=== PATIENT | male | born 1985 | race Caucasian/White ===

== ENCOUNTER 2017-08-13 14:31 | Emergency (ER) | payer SELFPAY ==
[~2017-08-13] VITALS: Ht 167.6 cm; Wt 72.4 kg
[~2017-08-13 14:31] MED LIST: BACTDS PO; CEPH-443 PO; HYDR-3498 PO; IBUP-1542 PO
[2017-08-13 14:40] VITALS: Ht 167.6 cm; Wt 72.4 kg
[2017-08-13] MEDS ORDERED: DOXY100T20 PO (15:49)
[2017-08-13] MEDS ORDERED: ACET500C5 PO (15:49)
--- NOTE | 2017-08-13 15:53 | ERD ---
ER Documentation Chief Complaint Chief Complaint Complains of rash to the face and ear x 3 days HPI This 32-year-old male complains of pain and redness in the left face. He has had a bump for over a year. He had a similar lesion on his left cheek feels that it is possible he was seen. Denies any fevers, vomiting, shortness breath or chest pain. ROS All systems reviewed and are negative except as per history of present illness. Medications Home Meds Active Scripts Acetaminophen* (Tylophen*) 500 Mg Capsule, 1 CAP PO Q6H Y for PAIN AND OR ELEVATED TEMP, #15 CAP Prov:KATIE EDWARDS MD 08/13/17 Doxycycline Hyclate* (Doxycycline Hyclate*) 100 Mg Tablet.dr, 100 MG PO BID for 10 Days, TAB Prov:KATIE EDWARDS MD 08/13/17 Hydrocodone Bit-Acetaminophen* ([place]*) 5-325 Mg Tab, 1 TAB PO Q6 Y for SEVERE PAIN LEVEL 7-10, #10 TAB Prov:RUSSELL BROWN NP 02/17/16 Ibuprofen* (Motrin*) 600 Mg Tab, 600 MG PO Q6H Y for PAIN AND OR ELEVATED TEMP, #30 TAB Prov:RUSSELL BROWN NP 02/17/16 Cephalexin* (Keflex*) 500 Mg Capsule, 500 MG PO QID for 10 Days, CAP Prov:RUSSELL BROWN NP 02/17/16 Sulfamethoxazole-Trimethoprim* (Bactrim* DS) 800-160 Mg Tab, 1 TAB PO BID for 10 Days, TAB Prov:RUSSELL BROWN NP 02/17/16 Reported Medications [none] Unknown Strength No Conflict Check 02/17/16 Allergies Allergies: Coded Allergies: No Known Allergy (Unverified , 02/17/16) PMhx/Soc Medical and Surgical Hx: pt denies Medical Hx, pt denies Surgical Hx History of Surgery: No Anesthesia Reaction: No Hx Neurological Disorder: No Hx Respiratory Disorders: No Hx Cardiac Disorders: No Hx Psychiatric Problems: No Hx Miscellaneous Medical Probl: No Hx Alcohol Use: No Hx Substance Use: No Hx Tobacco Use: No Smoking Status: Never smoker Physical Exam Vitals Vital Signs Date Time Temp Pulse Resp B/P Pulse Ox O2 Delivery O2 Flow Rate FiO2 08/13/17 14:40 98.8 66 20 127/72 99 Physical Exam Const: [] Letter, [id number]. Head: Atraumatic Eyes: Normal Conjunctiva ENT: Normal External Ears, Nose and Mouth. 1 cm subcutaneous tender lesion just anterior to the left ear. No significant streaking or obvious fluctuance. Neck: Full range of motion..~ No meningismus. Resp: Clear to auscultation bilaterally Cardio: Regular rate and rhythm, no murmurs Abd: Soft, non tender, non distended. Normal bowel sounds Skin: No petechiae or rashes Back: No midline or flank tenderness Ext: No cyanosis, or edema Neur: Awake and alert Psych: Normal Mood and Affect Results 24 hrs Current Medications Medications (Trade) Dose Ordered Sig/Doris Route PRN Reason Start Time Stop Time Status Last Admin Dose Admin Lidocaine (Xylocaine 1% (Mdv) 20 ml) 20 ml ONCE ONCE SC 08/13/17 16:00 08/13/17 16:01 Procedures/MDM Patient presents with a skin lesion which is worsening redness and pain which has a clinical appearance of likely a sebaceous cyst. There is no evidence of significant facial cellulitis, additional complications. General-the left face was prepped with Betadine. 1 cc lidocaine was used for local infiltration. #11 scalpel was used to incise the wound. Sebaceous material was expressed. The lesion was small so was not packed. The wound was then dressed. Patient was discharged home with prescription for doxycycline, instructions for wound care primary care follow-up and return precautions. Patient was advised that the lesion may return and is advised to see primary doctor for possible referral for definitive removal by specialist. Departure Diagnosis: Primary Impression: Sebaceous cyst Condition: Stable Patient Instructions: Sebaceous Cyst, Infected (I And D) Additional Instructions: Cheque otro vez con sorto doctor primario en el proximo bragg or regresa para mas o nueva simptomas. KATIE EDWARDS MD Aug 13, 2017 15:53
[2017-08-13] MEDS ORDERED: LIDOCAINE 1% (MDV) 20 ML INJ SC ONE (16:00)
== END 2017-08-13 16:18 | disposition home or self-care (01) ==
LOC: FTE 14:31
DX: L72.3 Sebaceous cyst (principal)